=== PATIENT | female | born 1950 | race Two or more races ===

== ENCOUNTER 2016-06-06 16:27 | Emergency (ER) | payer OTHER ==
--- NOTE | 2016-06-06 16:35 | ER Document Report ---
ED Medical Screen (RME) - General Stated Complaint: HALLUCINATIONS Mode of Arrival: Ambulatory Information source: Relative - daughter Notes: Patient presents with her daughter for hallucinations auditory and visual. Daughter reports she was just released from a mental facility in [place]. Patient does not speak Serbian. I have greeted and performed a rapid initial assessment of this patient. A comprehensive ED assessment and evaluation of the patient, analysis of test results and completion of the medical decision making process will be conducted by additional ED providers.
[2016-06-06 17:17] LABS: ABSOLUTE EOSINOPHILS # (AUTO) 0.3 10^3/uL (0.0-0.6); ABSOLUTE LYMPHOCYTES (AUTO) 3.3 10^3/uL (0.5-4.7); ABSOLUTE MONOCYTES (AUTO) 0.5 10^3/uL (0.1-1.4); BASOPHILS % (AUTO) 0.4 % (0-2); EOSINOPHILS % (AUTO) 3.1 % (0-6); HEMATOCRIT 39.7 % (36.0-47.0); HEMOGLOBIN 12.3 g/dL (12.0-15.5); HGB HCT DIFFERENCE -2.8; LYMPHOCYTES % (AUTO) 36.5 % (13-45); MEAN CORPUSCULAR HEMOGLOBIN 24.9 pg (27.0-33.4); MEAN CORPUSCULAR HGB CONC 30.8 g/dL (32.0-36.0); MEAN CORPUSCULAR VOLUME 81 fl (80-97); MONOCYTES % (AUTO) 5.8 % (3-13); RED BLOOD COUNT 4.91 10^6/uL (3.72-5.28); RED CELL DISTRIBUTION WIDTH 14.8 % (11.5-14.0); SEGMENTED NEUTROPHILS % (AUTO) 54.2 % (42-78); WHITE BLOOD COUNT 9.2 10^3/uL (4.0-10.5)
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
[2016-06-06 17:28] LABS: APPEARANCE,URINE CLEAR; BILIRUBIN,URINE NEGATIVE (NEGATIVE); GLUCOSE, URINE NEGATIVE (NEGATIVE); KETONES,URINE NEGATIVE (NEGATIVE); LEUKOCYTE ESTERASE,URINE NEGATIVE (NEGATIVE); NITRITE,URINE NEGATIVE (NEGATIVE); PROTEIN,URINE NEGATIVE (NEGATIVE); URINE SPECIFIC GRAVITY 1.004; UROBILINOGEN,URINE NEGATIVE mg/dL (<2.0)
[2016-06-06 17:30] LABS: ALANINE AMINOTRANSFERASE 22 U/L (9-52); ALBUMIN 4.5 g/dL (3.5-5.0); ALKALINE PHOSPHATASE 90 U/L (38-126); ANION GAP 16 (5-19); ASPARTATE AMINO TRANSFERASE 24 U/L (14-36); BILIRUBIN,TOTAL 0.4 mg/dL (0.2-1.3); BLOOD UREA NITROGEN 10 mg/dL (7-20); CALCIUM 9.9 mg/dL (8.4-10.2); CARBON DIOXIDE 28 mmol/L (22-30); CHLORIDE 99 mmol/L (98-107); CREATININE RESULT 0.56 mg/dL (0.52-1.25); GLUCOSE 193 mg/dL (75-110); POTASSIUM 4.4 mmol/L (3.6-5.0); SODIUM 142.7 mmol/L (137-145); TOTAL PROTEIN 7.4 g/dL (6.3-8.2)
[2016-06-06 17:31] LABS: ALCOHOL < 10 mg/dL (NONE DETECTED)
[2016-06-06 17:39] LABS: URINE BARBITURATES SCREEN NEGATIVE; URINE METHADONE SCREEN NEGATIVE; URINE PHENCYCLIDINE SCREEN NEGATIVE
[2016-06-06] MEDS ORDERED: BENZTROPINE MESYLATE 1 MG TABLET PO ONE (18:36)
[2016-06-06] MEDS ORDERED: DIVALPROEX SODIUM 250 MG TAB.SR.24H PO ONE (18:36)
[2016-06-06] MEDS ORDERED: OLANZAPINE 5 MG TABLET PO ONE (18:36)
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
[2016-06-06] MEDS: BENZTROPINE MESYLATE 1 MG TABLET PO SCH (23:00)
--- NOTE | 2016-06-07 09:25 | EKG REPORT ---
SEVERITY:- BORDERLINE ECG - SINUS RHYTHM BORDERLINE INFERIOR Q WAVES : Confirmed by: Aliza Hammer MD 07-Jun-2016 09:24:14
--- NOTE | 2016-06-07 09:58 | ER Document Report ---
Doctor's Note Notes: 06/07/16 09:56 I have evaluated this pt. this am and have received information through her daughter as she is acting as interpretor. She says all of her mom's needs are being met and she has no c/o. Her physical exam is normal and she is awaiting disposition per mental health.
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
[2016-06-07] MEDS: DIVALPROEX SODIUM 250 MG TAB.SR.24H PO SCH (18:47)
[2016-06-07] MEDS: OLANZAPINE 5 MG TABLET PO SCH (18:47)
[2016-06-07] MEDS: BENZTROPINE MESYLATE 1 MG TABLET PO SCH (23:05)
--- NOTE | 2016-06-08 09:36 | ER Document Report ---
Doctor's Note Notes: 06/08/16 09:35 I have evaluated this pt. this am and she has no c/o at this time. She feels all of her needs are being met (through interpretor) and her physical exam is normal. She is awaiting disposition per mental health.
[2016-06-08] MEDS: OLANZAPINE 5 MG TABLET PO SCH (10:22)
[2016-06-08] MEDS: DIVALPROEX SODIUM 250 MG TAB.SR.24H PO SCH (10:23)
--- NOTE | 2016-06-08 12:11 | PSYCHOLOGICAL NOTE ---
Psych Note - Psych Note Psych Note: Conducted check in with patient who is a 66 year old female under IVC at [facility] ED for hallucinations and bizarre behavior. Patient is Turkish speaking only and was evaluated using the [employer] translation services. Patient this morning states she is ready to go home. Patient states she still has a little bit of the symptoms she presented with (hearing sounds) but denies feeling concerned about them, or worried for her safety. Patient is agreeable to continue her medications, with the supervision and assistance of her daughter and or . Patient denies thoughts of wanting to harm herself or anyone else. Patient's daughter and are bedside. Both of whom report no concerns for patient's safety and state they are agreeable to manage the patient's medications and secure outpatient treatment for the remainder of her visit in the [facility]. Patient is A&O. Mood is euthymic with smiling affect. Pateint denies suicidal/ homicidal ideations, intent, plan, or means. Patient endorses AH. Delusions not noted. Thought processes were guarded. Conversational speech was WNL for rate, tone, and prosody. Intellectual abilities were estimated within average range . Attention and focus were fair. Insight, judgment and impulse control were fair. Major depressive disorder; severe Complicated bereavement R/O major depressive disorder with psychosis R/O medication induced psychosis Patient is psychiatrically cleared for discharge. Patient is agreeable to allow her daughter/ manage her medications and dispense when due. Patient and family report no safety concerns and that they are in agreement with following up with an outpatient provider. Family provided resources to do so. I consulted with Dr. Gipson in regards to the care and management of this patient. ED MD is in agreement with disposition and recommendations.
[2016-06-08 12:48] VITALS: BP 117/63
== END 2016-06-08 12:47 | disposition home or self-care (01) ==
LOC: ER 16:27
DX: F43.21 Adjustment disorder with depressed mood (principal); R44.0 Auditory hallucinations; R44.1 Visual hallucinations; F32.9 Major depressive disorder, single episode, unspecified; F41.9 Anxiety disorder, unspecified
CPT/HCPCS: 93005; 99285; 36415; 80307 ×4; 85025; 80053; 81001; 93010; J3490 ×2

== ENCOUNTER 2016-06-20 09:27 | Emergency (ER) | payer OTHER ==
[2016-06-20 09:48] VITALS: BP 127/60
--- NOTE | 2016-06-20 10:10 | ER Document Report ---
ED General - General Chief Complaint: Medication Refill Stated Complaint: MEDICATION REFILL Notes: Patient is here because she needs a refill of her Depakote and Zyprexa to last her until her mental health appointment on July 01. Patient was just here in this emergency department a couple of weeks ago and discharged on these medications, but has now run out. She is doing well and doesn't have any complaints. Has been taking the medication without any side effects. TRAVEL OUTSIDE OF THE U.S. IN LAST 30 DAYS: No - Related Data Allergies/Adverse Reactions: No Known Allergies Allergy (Verified 06/20/16 09:45) Past Medical History - Social History Smoking Status: Unknown if Ever Smoked Cigarette use (# per day): No Chew tobacco use (# tins/day): No Frequency of alcohol use: None Drug Abuse: None Family History: Reviewed & Not Pertinent Patient has suicidal ideation: No Patient has homicidal ideation: No Psychiatric Medical History: Reports: Hx Depression Review of Systems - Review of Systems Constitutional: denies: Fever Cardiovascular: denies: Chest pain Neurological/Psychological: No symptoms reported Physical Exam - Vital signs Vitals: Temp Pulse Resp BP Pulse Ox 97.8 F 74 20 127/60 H 100 06/20/16 09:45 06/20/16 09:45 06/20/16 09:45 06/20/16 09:45 06/20/16 09:45 Interpretation: Normal - Notes Notes: PHYSICAL EXAMINATION: GENERAL: Well-appearing, in no acute distress. Vital signs are all normal. HEAD: Atraumatic, normocephalic. EYES: Pupils equal round and reactive to light, extraocular movements intact. LUNGS: Breath sounds clear and equal bilaterally. HEART: Regular rate and rhythm without murmurs. PSYCH: Normal mood, normal affect. Course - Vital Signs Vital signs: Temp Pulse Resp BP Pulse Ox 97.8 F 74 20 127/60 H 100 06/20/16 09:45 06/20/16 09:45 06/20/16 09:45 06/20/16 09:45 06/20/16 09:45 Discharge - Discharge Clinical Impression: Depression Qualifiers: Depression Type: major depressive disorder Major depression recurrence: recurrent Psychotic features: with psychotic features Condition: Stable Disposition: HOME, SELF-CARE Additional Instructions: DEPRESSION: Your evaluation reveals that you have mental depression. While symptoms may be vague, they often include disturbance of sleep, fatigue, loss of appetite , and general loss of interest in life. While depression may be a side effect of drugs, or a reaction to a major change in your life, many cases have no known cause. If depression is acute, and related to a major loss in your life, you can expect it to clear completely with time. If you have been depressed a long time , are prone to repeated bouts of depression or low mood, or have been thinking of suicide, get help. Depression can be treated with anti-depressant medication and counselling. Long-term depression will often take a few weeks to clear, even with appropriate medication. Follow-up care is important. FOLLOW-UP CARE: If you have been referred to a physician for follow-up care, call the physician s office for an appointment as you were instructed or within the next two days. If you experience worsening or a significant change in your symptoms, notify the physician immediately or return to the Emergency Department at any time for re-evaluation. Keep your mental health appointment on July 01, as scheduled. Prescriptions: Divalproex Sodium [Depakote Er 250 Mg Tablet] 250 mg PO BID #30 tab.sr.24h Olanzapine [Zyprexa 5 mg Tablet] 5 mg PO Q12 #30 tablet
== END 2016-06-20 10:58 | disposition home or self-care (01) ==
LOC: ER 09:27
DX: F33.9 Major depressive disorder, recurrent, unspecified (principal)
CPT/HCPCS: 99281

== ENCOUNTER 2016-08-12 12:59 | Emergency (ER) | payer MEDICAID, OTHER ==
[2016-08-12] MEDS ORDERED: ALBUTEROL SULFATE 0.083% NEB 2.5 MG/3 ML AMPUL NEB ONE (13:12)
--- NOTE | 2016-08-12 13:12 | ER Document Report ---
ED Medical Screen (RME) - General Stated Complaint: CHEST CONGESTION Notes: [employer] used for translation. States she's had a cold and a cough for about 2 weeks. Cough is nonproductive, complains of shortness of breath, chest hurts with coughing. Denies fever. No nausea, vomiting or diarrhea. No past medical history such as asthma or lung problems. Been taking [id number] cough cold medications. I have greeted and performed a rapid initial assessment of this patient. A comprehensive ED assessment and evaluation of the patient, analysis of test results and completion of the medical decision making process will be conducted by additional ED providers. TRAVEL OUTSIDE OF THE U.S. IN LAST 30 DAYS: No - Related Data Allergies/Adverse Reactions: No Known Allergies Allergy (Verified 08/12/16 13:11) Past Medical History Renal/ Medical History: Denies: Hx Peritoneal Dialysis Psychiatric Medical History: Reports: Hx Depression Physical Exam - Respiratory Respiratory status: No respiratory distress Breath sounds: Decreased air movement, Wheezing
--- NOTE | 2016-08-12 16:57 | ER Document Report ---
ED General - General Mode of Arrival: Ambulatory Information source: Patient TRAVEL OUTSIDE OF THE U.S. IN LAST 30 DAYS: No - HPI Patient complains to provider of: Cough and Shortness of Breath Onset: Other - 1 month ago Onset/Duration: Intermittent Associated symptoms: Other - see HPI <LUANNE STEVENS - Last Filed: 08/12/16 18:56> <JASON GARBER - Last Filed: 08/12/16 19:44> - General Chief Complaint: Cough Stated Complaint: CHEST CONGESTION Notes: 66 year old Palestinian-speaking female with history of diabetes and hypertension presents to the ED accompanied by her daughter who is translating complaining of intermittent productive cough (green and yellow sputum) and shortness of breath that has been present for the past 1 month. Daughter reports that the patient has coughing episodes that precipitate her shortness of breath. Patient was given a nebulizer treatment and states that it has helped temporarily because her shortness of breath has returned. Patient has used over the counter medication to help, but to no relief. Patient does not see a stock associate. Patient additionally complains of mild rhinorrhea, but denies rash or fever. Patient denies being on any steroids or antibiotics, but is on Lisinopril. Daughter reports that the patient was taking care of her father who was a smoker. (LUANNE STEVENS) - Related Data Allergies/Adverse Reactions: No Known Allergies Allergy (Verified 08/12/16 13:11) Past Medical History - General Information source: Patient - Social History Smoking Status: Never Smoker Chew tobacco use (# tins/day): No Frequency of alcohol use: None Drug Abuse: None Family History: Reviewed & Not Pertinent - Past Medical History Cardiac Medical History: Reports: Hx Hypertension Endocrine Medical History: Reports: Hx Diabetes Mellitus Type 2 Renal/ Medical History: Denies: Hx Peritoneal Dialysis Psychiatric Medical History: Reports: Hx Depression Surgical Hx: Negative Past Surgical History: Reports: None <LUANNE STEVENS - Last Filed: 08/12/16 18:56> Review of Systems - Review of Systems Constitutional: No symptoms reported. denies: Fever EENT: See HPI, Nose discharge Cardiovascular: No symptoms reported Respiratory: See HPI, Cough, Short of breath, Sputum - yellow and white Gastrointestinal: No symptoms reported Genitourinary: No symptoms reported Female Genitourinary: No symptoms reported Musculoskeletal: No symptoms reported Skin: No symptoms reported. denies: Rash Hematologic/Lymphatic: No symptoms reported Neurological/Psychological: No symptoms reported -: Yes All other systems reviewed and negative <LUANNE STEVENS - Last Filed: 08/12/16 18:56> Physical Exam - General General appearance: Alert In distress: None - HEENT Head: Normocephalic, Atraumatic Eyes: Normal Extraocular movements intact: Yes Pupils: PERRL - Respiratory Respiratory status: No respiratory distress Breath sounds: Normal - Cardiovascular Rhythm: Regular Heart sounds: Normal auscultation - Abdominal Inspection: Normal - Back Back: Normal - Extremities General upper extremity: Normal inspection, Normal ROM General lower extremity: Normal inspection, Normal ROM - Neurological Neuro grossly intact: Yes Cognition: Normal Orientation: AAOx4 Matilde Coma Scale Eye Opening: Spontaneous Rowley Coma Scale Verbal: Oriented Matilde Coma Scale Motor: Obeys Commands Rowley Coma Scale Total: 15 Speech: Normal - Psychological Associated symptoms: Normal affect, Normal mood - Skin Skin Temperature: Warm Skin Moisture: Dry Skin Color: Normal <LUANNE STEVENS - Last Filed: 08/12/16 18:56> Course - Laboratory Result Diagrams: 08/12/16 17:15 08/12/16 18:23 <LUANNE STEVENS - Last Filed: 08/12/16 18:56> - Laboratory Result Diagrams: 08/12/16 17:15 08/12/16 18:23 <JASON GARBER - Last Filed: 08/12/16 19:44> - Re-evaluation Re-evalutation: 08/12/16 19:39 Patient was feeling much better after the nebulizer treatment. I suspect there is some infectious component with the yellow sputum she is having as well as an allergic component. I recommended daily Claritin for 2 weeks to see if this helps as well as an albuterol inhaler. We will write her a prescription as well for a Z-Rishabh. We had a discussion about the pulmonary nodule and follow up in the next 6-12 months. They voice understanding of this as well as warning signs to watch for. (JASON GARBER) - Vital Signs Vital signs: Temp Pulse Resp BP Pulse Ox 98.3 F 91 20 136/63 H 94 08/12/16 13:03 08/12/16 13:03 08/12/16 13:03 08/12/16 13:03 08/12/16 13:03 - Laboratory Laboratory results interpreted by me: 08/12/16 08/12/16 17:15 18:23 MCH 26.2 L Seg Neutrophils % 38.3 L Lymphocytes % 46.0 H Eosinophils % 6.9 H Absolute Eosinophils 0.7 H Creatinine 0.47 L Glucose 154 H Discharge <LUANNE STEVENS - Last Filed: 08/12/16 18:56> <JASON GARBER - Last Filed: 08/12/16 19:44> - Discharge Clinical Impression: Bronchitis, Pulmonary nodule, Cough Condition: Good Disposition: HOME, SELF-CARE Additional Instructions: Use the Albuterol inhaler as directed 2 puffs every 6 hours as needed for cough/ shortness of breath. Finish all of the antibiotic which is the Zithromax. Take Claritin [id number] daily for the next 2 weeks to see if it improves. If things do not improve, discuss discontinuing lisinopril with your primary care physician. As well as need follow-up in next 6-12 months on your pulmonary nodule seen on CT scan. Prescriptions: Albuterol Sulfate [Proair HFA Inhalation Aerosol 8.5 gm MDI] 2 puff IH Q4H PRN # 1 mdi PRN Reason: Azithromycin [Zithromax 250 mg Tablet] 250 mg PO ASDIR PRN #6 tablet PRN Reason: Referrals: [facility] [Provider Group] - Follow up in 3-5 days Scribe Attestation: 08/12/16 19:43 I personally performed the services described in the documentation, reviewed and edited the documentation which was dictated to the scribe in my presence, and it accurately records my words and actions. (JASON GARBER) Scribe Documentation - Scribe Written by Rip:: Rip Lou, 08/12/2016 1702 acting as scribe for :: Digna <LUANNE STEVENS - Last Filed: 08/12/16 18:56>
[2016-08-12 17:30] LABS: ABSOLUTE BASOPHILS # (AUTO) 0.1 10^3/uL (0.0-0.2); ABSOLUTE EOSINOPHILS # (AUTO) 0.7 10^3/uL (0.0-0.6); ABSOLUTE LYMPHOCYTES (AUTO) 4.4 10^3/uL (0.5-4.7); ABSOLUTE MONOCYTES (AUTO) 0.8 10^3/uL (0.1-1.4); ABSOLUTE NEUT (AUTO) 3.7 10^3/uL (1.7-8.2); BASOPHILS % (AUTO) 0.7 % (0-2); EOSINOPHILS % (AUTO) 6.9 % (0-6); HEMATOCRIT 37.8 % (36.0-47.0); HEMOGLOBIN 12.4 g/dL (12.0-15.5); HGB HCT DIFFERENCE -0.6; MEAN CORPUSCULAR HEMOGLOBIN 26.2 pg (27.0-33.4); MEAN CORPUSCULAR HGB CONC 32.8 g/dL (32.0-36.0); MEAN CORPUSCULAR VOLUME 80 fl (80-97); MONOCYTES % (AUTO) 8.1 % (3-13); RED BLOOD COUNT 4.74 10^6/uL (3.72-5.28); RED CELL DISTRIBUTION WIDTH 13.8 % (11.5-14.0); SEGMENTED NEUTROPHILS % (AUTO) 38.3 % (42-78); WHITE BLOOD COUNT 9.6 10^3/uL (4.0-10.5)
[2016-08-12 18:49] LABS: ANION GAP 17 (5-19); BLOOD UREA NITROGEN 12 mg/dL (7-20); CALCIUM 9.4 mg/dL (8.4-10.2); CARBON DIOXIDE 24 mmol/L (22-30); CHLORIDE 104 mmol/L (98-107); CREATININE RESULT 0.47 mg/dL (0.52-1.25); GLUCOSE 154 mg/dL (75-110); POTASSIUM 4.5 mmol/L (3.6-5.0); SODIUM 144.5 mmol/L (137-145)
[2016-08-12 20:01] VITALS: BP 138/70
== END 2016-08-12 20:01 | disposition home or self-care (01) ==
LOC: ER 12:59
DX: J40 Bronchitis, not specified as acute or chronic (principal); R91.1 Solitary pulmonary nodule; R05 Cough; R09.89 Other specified symptoms and signs involving the circulatory and respiratory systems; R06.02 Shortness of breath
CPT/HCPCS: 36415; 71020; 71260; 80048; 85025; 94640; 99284